=== PATIENT | female | born 1965 | race Hispanic/Latino ===

== ENCOUNTER 2020-12-10 02:13 | Emergency (ER) | payer OTHER ==
[~2020-12-10] VITALS: Ht 154.9 cm; Wt 72.6 kg
[2020-12-10] MEDS ORDERED: MECL-160 PO (03:01)
[2020-12-10] MEDS ORDERED: METO-296 PO (03:01)
[2020-12-10] MEDS ORDERED: ONDA4TAB10 PO (03:01)
== END 2020-12-10 03:04 | disposition home or self-care (01) ==
LOC: EDH 02:13
DX: R53.81 Other malaise (principal); R42 Dizziness and giddiness; Z20.822 Contact with and (suspected) exposure to COVID-19; Z79.899 Other long term (current) drug therapy
CPT/HCPCS: 87635; 99283; C9803